=== PATIENT | female | born 1980 | race Caucasian/White ===

== ENCOUNTER 2018-04-17 04:58 | Emergency (ER) | payer MEDICAID ==
[~2018-04-17] VITALS: Ht 170.2 cm; Wt 86.6 kg
[2018-04-17] MEDS ORDERED: DETROL2 MG ORAL (05:04)
[2018-04-17] MEDS ORDERED: ZYPREXA10 MG ORAL (05:04)
[2018-04-17] MEDS ORDERED: IBUPROFEN600 MG ORAL (05:04)
[2018-04-17] MEDS ORDERED: BENZTROPINE ME0.5 MG PO (05:04)
[2018-04-17 05:15] VITALS: BP 103/80
[2018-04-17] MEDS ORDERED: Tetracaine 0.5% Opth 4ml Soln LEFT EYE ONE (05:30)
[2018-04-17] MEDS ORDERED: Fluorescein Strips LEFT EYE ONE (05:30)
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
[2018-04-17 09:18] VITALS: BP 130/92
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
== END 2018-04-17 09:18 | disposition home or self-care (01) ==
LOC: EDBD 04:58 → EMR 05:15
DX: H53.2 Diplopia (principal); S05.92XA Unspecified injury of left eye and orbit, initial encounter; W51.XXXA Accidental striking against or bumped into by another person, initial encounter; Y92.9 Unspecified place or not applicable
CPT/HCPCS: 99283